=== PATIENT | male | born 1945 | race Caucasian/White ===

== ENCOUNTER 2024-10-31 12:12 | Emergency (ER) | payer BC, MEDICARE, OTHER ==
[~2024-10-31] VITALS: Ht 185.4 cm; Wt 73.9 kg
[~2024-10-31 12:12] MED LIST: ALBUTEROL SULF8.5 GM INH; AMBIEN10 MG PO; IPRAT-ALBUT 0.5-3 ML NEB; LISINOPRIL10 MG PO; LITHIUM CARBON300 M1 PO; PLAQUENIL PO; PLAVIX75 MG PO; PREDNISONE5 MG PO; PRIMIDONE250 MG PO; SIMVASTATIN5 MG PO; SPIRIVA18 MCG INH; SYMBICORT 16010.2 GM INH; aspirin
[2024-10-31] MEDS ORDERED: NAPROXEN375 MG PO (15:21)
[2024-10-31 15:44] VITALS: PULSE 65; RESP 16; TEMP 98.2; O2SAT 96
== END 2024-10-31 15:44 | disposition home or self-care (01) ==
LOC: ER 15:12
DX: M25.551 Pain in right hip (principal); W01.0XXA Fall on same level from slipping, tripping and stumbling without subsequent striking against object, initial encounter; Y93.01 Activity, walking, marching and hiking; Y92.89 Other specified places as the place of occurrence of the external cause; J44.9 Chronic obstructive pulmonary disease, unspecified; I25.10 Atherosclerotic heart disease of native coronary artery without angina pectoris; F31.9 Bipolar disorder, unspecified; Z85.828 Personal history of other malignant neoplasm of skin; Z95.1 Presence of aortocoronary bypass graft; Z95.810 Presence of automatic (implantable) cardiac defibrillator
CPT/HCPCS: 99283

== ENCOUNTER 2024-11-02 11:06 | Inpatient (IN) | payer MEDICARE, OTHER ==
[~2024-11-02] VITALS: Ht 185.4 cm; Wt 73.9 kg
[~2024-11-02 11:06] MED LIST changes: +NAPROXEN375 MG PO
[2024-11-02 11:15] VITALS: TEMP 97.9
[2024-11-02 11:54] LABS: BASOPHILS % 0.7 % (0.0-1.0); EOSINOPHILS % 6.2 % (0.0-6.0); LYMPHOCYTES % 18.2 % (18.0-39.1); MONOCYTES % 9.0 % (4.4-11.3); NEUTROPHILS % 65.1 % (38.7-80.0); RED CELL DISTRIBUTION WIDTH 12.8 % (11.7-14.4)
[2024-11-02 12:16] LABS: EST GLOMERULAR FILTRATION RATE 32.0 ML/MIN (>=60)
[2024-11-02] MEDS: SODIUM CHLORIDE 0.9% 1000ML 1,000 ML IV SCH (13:30)
[2024-11-02] MEDS ORDERED: ONDANSETRON HCL INJ 2MG/ML 2ML 2 MG/ML VIAL IV PRN (13:30)
[2024-11-02] MEDS: SODIUM CHLORIDE 0.9% 1000ML 1,000 ML IV STA (14:31)
[2024-11-02] MEDS: SODIUM BICARBONATE 8.4% INJ 50 ML SYR IV STA (14:31)
[2024-11-02] MEDS: FUROSEMIDE INJ 10 MG/ML 2 ML VIAL IV ONE (14:32)
[2024-11-02] MEDS: INSULIN REGULAR, HUMAN 100 UNIT/1 ML IV ONE (14:39)
[2024-11-02 14:41] LABS: INR 1.22
[2024-11-02] MEDS: DEXTROSE 50% SYRINGE 50 ML IV STA (14:44)
[2024-11-02 14:58] LABS: EPITHELIAL CELLS,URINE RARE /LPF; LEUKOCYTE ESTERASE ,URINE NEGATIVE (NEGATIVE); PROTEIN,URINE DIPSTICK NEGATIVE (NEGATIVE); URINE UROBILINOGEN 0.2 mg/dL (0.2 - 1)
[2024-11-02 17:00] VITALS: PULSE 59; RESP 16
[2024-11-02 17:25] VITALS: BP 108/51; PULSE 57; RESP 20; TEMP 97.5; O2SAT 95
[2024-11-02] MEDS ORDERED: METOPROLOL SUCC50 MG PO (18:58)
[2024-11-02] MEDS ORDERED: STIOLTO RESPIMAT4 G2 INH (18:58)
[2024-11-02] MEDS ORDERED: ZETIA10 MG PO (18:58)
[2024-11-02] MEDS ORDERED: QUETIAPINE FUM100 MG PO (18:58)
[2024-11-02] MEDS ORDERED: ELIQUIS5 MG PO (18:58)
[2024-11-02] MEDS ORDERED: SODIUM CHLORIDE15 M1 NEB (18:58)
[2024-11-02] MEDS ORDERED: SULFASALAZINE500 MG PO (18:58)
[2024-11-02] MEDS ORDERED: ASPIRIN EC81 MG PO (18:58)
[2024-11-02] MEDS ORDERED: FLECAINIDE ACE100 MG PO (18:58)
[2024-11-02] MEDS ORDERED: AZOR 10-40 MG1 EACH PO (18:58)
[2024-11-02 20:00] VITALS: BP 106/52; PULSE 60; RESP 17; TEMP 97.9; O2SAT 95
[2024-11-03] VITALS (11 sets, daily range): BP systolic 119–149; BP diastolic 54–75; PULSE 59–67; RESP 16–20; TEMP 97.8–98.5; O2SAT 95–100
[2024-11-03 05:58] LABS: BASOPHILS % 0.9 % (0.0-1.0); EOSINOPHILS % 7.0 % (0.0-6.0); LYMPHOCYTES % 17.4 % (18.0-39.1); MONOCYTES % 7.6 % (4.4-11.3); NEUTROPHILS % 66.4 % (38.7-80.0); RED CELL DISTRIBUTION WIDTH 12.7 % (11.7-14.4)
[2024-11-03] MEDS ORDERED: ALBUTEROL/IPRATROPIUM 3 ML NEB NEB PRN (06:00)
[2024-11-03] MEDS ORDERED: ALBUTEROL 90 MCG/ACT INHALER INH PRN (06:00)
[2024-11-03 06:27] LABS: EST GLOMERULAR FILTRATION RATE 29.0 ML/MIN (>=60)
[2024-11-03] MEDS: APIXABAN 5 MG TABLET PO SCH (08:40)
[2024-11-03] MEDS: SULFASALAZINE 500 MG TAB PO SCH (08:40)
[2024-11-03] MEDS: OLMESARTAN 20 MG TAB PO SCH (08:41)
[2024-11-03] MEDS: METOPROLOL SUCCINATE 50 MG TAB XL PO SCH (08:41)
[2024-11-03] MEDS: EZETIMIBE 10 MG TAB PO SCH (08:42)
[2024-11-03] MEDS: FLECAINIDE ACETATE 100 MG TAB PO SCH (08:42)
[2024-11-03] MEDS: AMLODIPINE BESYLATE 10 MG TAB PO SCH (08:42)
[2024-11-03] MEDS: ASPIRIN 81 MG CHEW TAB PO SCH (08:44)
[2024-11-03] MEDS: METHYLPREDNISOLONE SOD SUCC 40 MG/ML VIAL 1ML IV SCH (08:54)
[2024-11-03] MEDS: LACTATED RINGER'S 1,000 ML IV SCH (12:39)
[2024-11-03 15:03] LABS: BASOPHILS % 0.4 % (0.0-1.0); EOSINOPHILS % 0.3 % (0.0-6.0); LYMPHOCYTES % 7.5 % (18.0-39.1); MONOCYTES % 0.6 % (4.4-11.3); NEUTROPHILS % 90.4 % (38.7-80.0); RED CELL DISTRIBUTION WIDTH 13.0 % (11.7-14.4)
[2024-11-03 15:30] LABS: EST GLOMERULAR FILTRATION RATE 32.0 ML/MIN (>=60); PHOSPHORUS 1.9 MG/DL (2.3-4.7)
[2024-11-03] MEDS: QUETIAPINE FUMARATE 100 MG TAB PO PRN (21:36)
[2024-11-04] VITALS (10 sets, daily range): BP systolic 116–130; BP diastolic 46–87; PULSE 59–71; RESP 16–21; TEMP 97.1–98.6; O2SAT 93–99
[2024-11-04] MEDS ORDERED: SOD POLYSTYRENE SULFONATE SUSP 15 GM/60 ML BTL PO ONE (12:45)
[2024-11-04 14:01] LABS: EST GLOMERULAR FILTRATION RATE 40.0 ML/MIN (>=60)
[2024-11-04] MEDS: SODIUM BICARBONATE 650 MG TAB PO SCH (17:05)
[2024-11-05] MEDS: QUETIAPINE FUMARATE 25 MG TAB PO PRN (00:02)
[2024-11-05 00:06] VITALS: BP 122/64; PULSE 67; RESP 22; TEMP 97.8; O2SAT 97
[2024-11-05 03:30] VITALS: BP 105/51; PULSE 60; RESP 19; TEMP 97.4; O2SAT 96
[2024-11-05 07:03] LABS: EST GLOMERULAR FILTRATION RATE 40.0 ML/MIN (>=60)
[2024-11-05 07:40] VITALS: BP 105/51; PULSE 60; RESP 19; TEMP 97.4; O2SAT 96
[2024-11-05 08:07] VITALS: BP 112/58; PULSE 60; RESP 19; TEMP 98; O2SAT 95
[2024-11-05] MEDS: PREDNISONE 20 MG TAB PO SCH (10:17)
[2024-11-05 11:24] VITALS: PULSE 59; RESP 16; O2SAT 96
[2024-11-05] MEDS ORDERED: SODIUM BICARBO650 MG PO (11:45)
[2024-11-05] MEDS ORDERED: METOPROLOL SUCC50 MG PO (11:45)
[2024-11-05] MEDS ORDERED: ELIQUIS2.5 MG PO (12:35)
[2024-11-05] MEDS ORDERED: LOKELMA10 GM PO (13:01)
[2024-11-05 13:10] VITALS: BP 120/57; PULSE 62; RESP 20; TEMP 97.6; O2SAT 94
== END 2024-11-05 15:40 | disposition home or self-care (01) | DRG 641 ==
LOC: ER 11:51 → ERHOLD 13:37 → MED/SURG2 17:30
PROVIDERS: ADMIT Internal Medicine; ATTEND Internal Medicine
DX: E87.5 Hyperkalemia (principal); N17.9 Acute kidney failure, unspecified; J96.11 Chronic respiratory failure with hypoxia; N18.32 Chronic kidney disease, stage 3b; J44.9 Chronic obstructive pulmonary disease, unspecified; Z99.81 Dependence on supplemental oxygen; D63.8 Anemia in other chronic diseases classified elsewhere; I25.10 Atherosclerotic heart disease of native coronary artery without angina pectoris; Z95.1 Presence of aortocoronary bypass graft; Z95.810 Presence of automatic (implantable) cardiac defibrillator; R53.1 Weakness; R53.81 Other malaise; R33.9 Retention of urine, unspecified; F31.9 Bipolar disorder, unspecified; M06.9 Rheumatoid arthritis, unspecified; M19.91 Primary osteoarthritis, unspecified site; Z71.3 Dietary counseling and surveillance; Z68.21 Body mass index [BMI] 21.0-21.9, adult; W18.30XA Fall on same level, unspecified, initial encounter; Y92.009 Unspecified place in unspecified non-institutional (private) residence as the place of occurrence of the external cause; Z87.440 Personal history of urinary (tract) infections; Z85.828 Personal history of other malignant neoplasm of skin; Z79.01 Long term (current) use of anticoagulants; Z79.899 Other long term (current) drug therapy; Z87.891 Personal history of nicotine dependence; Z79.82 Long term (current) use of aspirin; Z79.52 Long term (current) use of systemic steroids; Z79.02 Long term (current) use of antithrombotics/antiplatelets
CPT/HCPCS: 36415; 51798; 71045; 80048; 80053; 81001; 82550; 82948; 83735; 83880; 84100; 84484; 85025; 85610; 85730; 87086; 94799; 99284; J0696; J1938; J2919; J7030; J7512; J7799